=== PATIENT | male | born 1995 | race Caucasian/White ===

== ENCOUNTER 2017-08-02 05:26 | Emergency (ER) | payer MEDICAID, OTHER ==
[~2017-08-02] VITALS: Ht 175.3 cm; Wt 54.0 kg
[~2017-08-02 05:26] MED LIST: HYDR-3965 PO; IBUP-1984 PO; NO HOME MEDS; PENI500T2 PO
[2017-08-02] MEDS ORDERED: ketorolac trometh inj. 60 MG/2 ML VIAL IM ONE (06:55)
[2017-08-02] MEDS ORDERED: clindamycin 150mg capsule PO ONE (06:55)
[2017-08-02] MEDS ORDERED: IBUP-1985 PO (07:36)
[2017-08-02] MEDS ORDERED: METR500T PO (07:46)
[2017-08-02 07:48] VITALS: BP 112/72
== END 2017-08-02 07:51 | disposition home or self-care (01) ==
LOC: ER 05:27
DX: K08.89 Other specified disorders of teeth and supporting structures (principal); Z79.899 Other long term (current) drug therapy
CPT/HCPCS: 96372; 99283; J1885

== ENCOUNTER 2017-08-02 22:41 | Emergency (ER) | payer OTHER ==
[~2017-08-02] VITALS: Ht 175.3 cm; Wt 56.2 kg
[~2017-08-02 22:41] MED LIST changes: +IBUP-1985 PO; +METR500T PO
[2017-08-02 23:12] VITALS: BP 125/88
== END 2017-08-03 05:17 | disposition left against medical advice (07) ==
LOC: ER 22:41
DX: K08.89 Other specified disorders of teeth and supporting structures (principal); Z53.21 Procedure and treatment not carried out due to patient leaving prior to being seen by health care provider

== ENCOUNTER 2017-08-04 13:26 | Emergency (ER) | payer MEDICAID, OTHER ==
[~2017-08-04] VITALS: Ht 175.3 cm; Wt 55.0 kg
[2017-08-04 14:12] VITALS: BP 122/79
[2017-08-04] MEDS ORDERED: HYDR-3965 PO (15:44)
== END 2017-08-04 14:12 | disposition home or self-care (01) ==
LOC: ER 13:26
DX: K02.9 Dental caries, unspecified (principal); K08.89 Other specified disorders of teeth and supporting structures; Z56.0 Unemployment, unspecified; Z79.2 Long term (current) use of antibiotics
CPT/HCPCS: 99283

== ENCOUNTER 2017-08-05 03:14 | Emergency (ER) | payer MEDICAID ==
[~2017-08-05] VITALS: Ht 175.3 cm; Wt 63.6 kg
[2017-08-05] MEDS ORDERED: BUPIVAcaine/PF 2.5 mg/ml (0.25%) 30ml vial IJ ONE (04:35)
[2017-08-05] MEDS ORDERED: naproxen 500mg tablet PO ONE (04:35)
[2017-08-05] MEDS ORDERED: LIDOcaine 1.5% w/epinephrine 1:200,000 5ml ampul IJ ONE (04:35)
[2017-08-05] MEDS ORDERED: HYDROcodone/acetaminophen 10/325mg tab PO ONE (04:35)
[2017-08-05] MEDS ORDERED: ketorolac trometh inj. 60 MG/2 ML VIAL IM ONE (04:40)
[2017-08-05 05:29] VITALS: BP 129/80
== END 2017-08-05 05:30 | disposition home or self-care (01) ==
LOC: ER 03:14
DX: K04.7 Periapical abscess without sinus (principal); K02.9 Dental caries, unspecified
CPT/HCPCS: 64400; 96372; 99284; J1885; J3490

== ENCOUNTER 2019-01-01 01:15 | Emergency (ER) | payer MEDICAID, OTHER ==
[~2019-01-01] VITALS: Ht 175.3 cm; Wt 63.0 kg
[~2019-01-01 01:15] MED LIST changes: -HYDR-3965 PO; -METR500T PO; -PENI500T2 PO
[2019-01-01] MEDS ORDERED: proCHLORperazine 10 MG/2 ml inj IV ONE (02:50)
[2019-01-01] MEDS ORDERED: diphenhydrAMINE 50 mg/ml inj IV ONE (02:50)
--- NOTE | 2019-01-01 03:15 | NUR ---
PT TO CT WITH TECH VIA WHEEL CHAIR
--- NOTE | 2019-01-01 03:32 | NUR ---
PT RESTING COMFORTABLY POC UPDATED WILL CONTINUE TO RERASSESS
[2019-01-01 04:59] VITALS: BP 101/65
== END 2019-01-01 05:30 | disposition home or self-care (01) ==
LOC: ER 01:16
DX: R51 Headache (principal); F17.200 Nicotine dependence, unspecified, uncomplicated; Z56.0 Unemployment, unspecified
CPT/HCPCS: 70450; 96374; 96375; 99284; J0780; J1200

== ENCOUNTER 2019-01-08 04:35 | Emergency (ER) | payer OTHER ==
[~2019-01-08] VITALS: Ht 175.3 cm; Wt 63.6 kg
[2019-01-08] MEDS ORDERED: ondansetron 4mg rapidly disintigrating tab PO ONE (05:10)
[2019-01-08] MEDS ORDERED: HYDROcodone/acetaminophen 10/325mg tab PO ONE (05:10)
[2019-01-08] MEDS ORDERED: dexamethasone 4mg tablet PO ONE (05:10)
[2019-01-08] MEDS ORDERED: HYDR-3965 PO (05:11)
[2019-01-08] MEDS ORDERED: METH4TAB3 PO (05:11)
[2019-01-08] MEDS ORDERED: AMOX500C2 PO (05:11)
[2019-01-08] MEDS ORDERED: ONDA4TAB6 PO (05:11)
[2019-01-08 05:35] VITALS: BP 109/75
== END 2019-01-08 05:38 | disposition home or self-care (01) ==
LOC: ER 04:35
DX: K04.7 Periapical abscess without sinus (principal); K02.9 Dental caries, unspecified; K00.6 Disturbances in tooth eruption; F10.99 Alcohol use, unspecified with unspecified alcohol-induced disorder; Z56.0 Unemployment, unspecified; Z79.899 Other long term (current) drug therapy; Y90.9 Presence of alcohol in blood, level not specified
CPT/HCPCS: 99284; J2405; J8540

== ENCOUNTER 2019-08-07 02:53 | Emergency (ER) | payer BC ==
[~2019-08-07] VITALS: Ht 175.3 cm; Wt 63.6 kg
[~2019-08-07 02:53] MED LIST changes: +METH4TAB3 PO; +ONDA4TAB6 PO
[2019-08-07 02:56] VITALS: BP 120/80
[2019-08-07] MEDS ORDERED: penicillin V potassium 500mg tablet PO ONE (03:25)
[2019-08-07] MEDS ORDERED: HYDROcodone/acetaminophen 10/325mg tab PO ONE (03:25)
[2019-08-07] MEDS ORDERED: PENI500T2 PO (03:27)
[2019-08-07] MEDS ORDERED: HYDR-4353 PO (03:27)
== END 2019-08-07 03:38 | disposition home or self-care (01) ==
LOC: ER 02:53
DX: K08.89 Other specified disorders of teeth and supporting structures (principal); F17.200 Nicotine dependence, unspecified, uncomplicated; Z72.89 Other problems related to lifestyle; Z56.0 Unemployment, unspecified; Z79.899 Other long term (current) drug therapy
CPT/HCPCS: 99283

== ENCOUNTER 2019-08-23 14:20 | Emergency (ER) | payer BC ==
[~2019-08-23] VITALS: Ht 175.3 cm; Wt 63.0 kg
[~2019-08-23 14:20] MED LIST changes: +HYDR-4353 PO; +PENI500T2 PO
[2019-08-23] MEDS ORDERED: CEPH250T PO (14:27)
[2019-08-23] MEDS ORDERED: NAPR-56 PO (14:27)
[2019-08-23 14:30] VITALS: BP 111/75
== END 2019-08-23 14:37 | disposition home or self-care (01) ==
LOC: ER 14:20
DX: K01.1 Impacted teeth (principal); G89.29 Other chronic pain; K08.89 Other specified disorders of teeth and supporting structures; Z72.89 Other problems related to lifestyle; Z56.0 Unemployment, unspecified; Z79.899 Other long term (current) drug therapy
CPT/HCPCS: 99283